=== PATIENT | male | born 1985 | race Caucasian/White ===

== ENCOUNTER 2018-05-30 00:06 | Emergency (ER) | payer SELFPAY ==
[~2018-05-30] VITALS: Ht 162.6 cm; Wt 54.4 kg
[~2018-05-30 00:06] MED LIST: METH-37 PO; TRAM-48 PO
[2018-05-30 00:32] VITALS: BP 155/98
[2018-05-30] MEDS ORDERED: CLIN300C8 PO (00:53)
[2018-05-30] MEDS ORDERED: CLINDAMYCIN HCL 150 MG CAPSULE. PO ONE (01:00)
--- NOTE | 2018-05-30 04:12 | PHYS DOC ---
Past Medical History Past Medical History: No Pertinent History Additional Past Medical Histor: DENTAL ISSUES Past Surgical History: No Surgical History Alcohol Use: None Drug Use: None Adult General Chief Complaint Chief Complaint: DENTAL PROBLEM HPI HPI Patient is a 33 year old long-standing history of widespread dental caries multiple dental erosions who presents with soft tissue gingival swelling draining abscess. Patient is currently on penicillin without improvement. Reports pearly controlled pain. No fever chills, dysphonia, dysphagia, drooling. No chest pain shortness breath. No other acute symptoms or complaints. Patient has not followed up with dentist. [] Review of Systems Review of Systems ROS as per HPI [] All other systems were reviewed and found to be within normal limits, except as documented in this note. Current Medications Current Medications Current Medications Medications (Trade) Dose Ordered Sig/Peter Start Time Stop Time Status Last Admin Dose Admin Clindamycin HCl (Cleocin) 300 mg 1X ONCE 05/30/18 01:00 05/30/18 01:01 DC 05/30/18 01:03 300 MG Allergies Allergies Allergies Coded Allergies Type Severity Reaction Last Updated Verified No Known Drug Allergies 10/21/14 No Physical Exam Physical Exam Constitutional: Well developed, well nourished, no acute distress, non-toxic appearance. [] HENT: Normocephalic, atraumatic, bilateral external ears normal, oropharynx moist, apical gingival draining abscess in upper gum line of hard palate. No dysphagia or drooling or trismus [] Neurologic: Alert and oriented X 3, normal motor function, normal sensory function, no focal deficits noted. [] Psychologic: Affect normal, judgement normal, mood normal. [] Current Patient Data Vital Signs Vital Signs Date Time Temp Pulse Resp B/P (MAP) Pulse Ox O2 Delivery O2 Flow Rate FiO2 05/30/18 00:32 98.7 77 17 155/98 (117) 97 Room Air 98.7 EKG EKG [] Radiology/Procedures Radiology/Procedures [] Course & Med Decision Making Course & Med Decision Making Pertinent Labs and Imaging studies reviewed. (See chart for details) [Patient currently on penicillin given clindamycin. Dental provider sheet provided to patient. He is instructed to given tomorrow morning to see dental/ oral surgeon for definitive care] Dragon Disclaimer Dragon Disclaimer This electronic medical record was generated, in whole or in part, using a voice recognition dictation system. Departure Departure Impression: Primary Impression: Abscess, dental Disposition: HOME, SELF-CARE Condition: STABLE Patient Instructions: Dental Abscess, Dental Caries-Brief Additional Instructions: Follow with one of the dental clinics listed on the hand out provided tomorrow. Take newly prescribed antibotic as directed. Scripts Clindamycin Hcl (CLINDAMYCIN HCL) 300 Mg Capsule 1 CAP PO TID, #30 CAP Prov: JORDAN DAVENPORT DO 05/30/18 JORDAN DAVENPORT DO May 30, 2018 04:12
== END 2018-05-30 01:07 | disposition home or self-care (01) ==
LOC: ER 00:06
DX: K04.7 Periapical abscess without sinus (principal); K02.9 Dental caries, unspecified
CPT/HCPCS: 99283

== ENCOUNTER 2020-05-27 21:29 | Emergency (ER) | payer SELFPAY ==
[~2020-05-27] VITALS: Ht 162.6 cm; Wt 54.5 kg
[~2020-05-27 21:29] MED LIST changes: +CLIN300C8 PO
[2020-05-27] MEDS ORDERED: AZIT250T PO (22:32)
--- NOTE | 2020-05-27 22:33 | PHYS DOC ---
Past Medical History Past Medical History: Other Additional Past Medical Histor: DENTAL ISSUES Past Surgical History: No Surgical History Smoking Status: Current Every Day Smoker Alcohol Use: None Drug Use: None General Adult EDM: Chief Complaint: GENERALIZED BODY ACHES HPI: HPI: Patient is a 34 year [id number] male presents with a chief complaint of fever cough with sputum production fever chills muscle aches since yesterday. Review of Systems: Review of Systems: Constitutional: Positive fever positive chills Eyes: Denies change in visual acuity. [] HENT: Denies nasal congestion or sore throat. [] Respiratory: Positive cough or shortness of breath. [] Cardiovascular: Denies chest pain or edema. [] GI: Denies abdominal pain, vomiting, bloody stools or diarrhea. [Positive nausea] : Denies dysuria. [] Musculoskeletal: Denies back pain or joint pain. [] Integument: Denies rash. [] Neurologic: Positive headache, denies focal weakness or sensory changes. [] Endocrine: Denies polyuria or polydipsia. [] Lymphatic: Denies swollen glands. [] Psychiatric: Denies depression or anxiety. [] Heart Score: Risk Factors: Risk Factors: DM, Current or recent (<one month) smoker, HTN, HLP, family h istory of CAD, obesity. Risk Scores: Score 0 - 3: 2.5% MACE over next 6 weeks - Discharge Home Score 4 - 6: 20.3% MACE over next 6 weeks - Admit for Clinical Observation Score 7 - 10: 72.7% MACE over next 6 weeks - Early Invasive Strategies Current Medications: Current Medications Medications (Trade) Dose Ordered Sig/[facility] Start Time Stop Time Status Last Admin Dose Admin Dexamethasone Sodium Phosphate (Decadron) 10 mg 1X ONCE 05/27/20 22:30 05/27/20 22:31 UNV Allergies: Allergies: Allergies Coded Allergies Type Severity Reaction Last Updated Verified No Known Drug Allergies 10/21/14 No Physical Exam: PE: Constitutional: Well developed, well nourished, no acute distress, non-toxic appearance. [] HENT: Normocephalic, atraumatic, bilateral external ears normal, oropharynx moist, no oral exudates, nose normal. [] Eyes: PERRLA, EOMI, conjunctiva normal, no discharge. [] Neck: Normal range of motion, no tenderness, supple, no stridor. [] Cardiovascular:Heart rate regular rhythm, no murmur [] Lungs & Thorax: No respiratory distress Abdomen: Bowel sounds normal, soft, no tenderness, no masses, no pulsatile masses. [] Skin: Warm, dry, no erythema, no rash. [] Back: No tenderness, no CVA tenderness. [] Extremities: No tenderness, no cyanosis, no clubbing, ROM intact, no edema. [] Neurologic: Alert and oriented X 3, normal motor function, normal sensory function, no focal deficits noted. [] Psychologic: Affect normal, judgement normal, mood normal. [] Current Patient Data: Vital Signs: Vital Signs Date Time Temp Pulse Resp B/P (MAP) Pulse Ox O2 Delivery O2 Flow Rate FiO2 05/27/20 21:44 99.3 88 18 127/79 (95) 98 Room Air 99.3 EKG: EKG: [] Radiology/Procedures: Radiology/Procedures: [] Course & Med Decision Making: Course & Med Decision Making Pertinent Labs and Imaging studies reviewed. (See chart for details) [] Patient was evaluated for chief complaint. Work-up consisted of laboratory analysis and radiologic imaging. Chest x-ray no focal infiltrate COVID test pending. Treatment included Decadron. Suspect COVID. Patient is afebrile and not hypoxic. Discharged home given COVID precaution instructions. Hilary Disclaimer: Hilary Disclaimer: This electronic medical record was generated, in whole or in part, using a voice recognition dictation system. Departure Departure Impression: Primary Impression: Viral syndrome Disposition: HOME, SELF-CARE Condition: STABLE Referrals: NO PCP (PCP) Patient Instructions: Viral Syndrome Additional Instructions: You have been tested for or diagnosed with COVID-19. It is an infection caused by a new type of coronavirus. COVID-19 will cause cold-like or mild flu symptoms in most. It can cause more severe symptoms like problems breathing in some. There is no treatment for COVID-19. The body will clear the infection over time. Self-care will help to ease discomfort. Steps to Take: Self-Care Rest as needed. Healthy habits may help you feel better. Steps include: Choose healthy foods including fruits and vegetables. Drink water throughout the day. Get plenty of sleep each night. If you smoke, try to quit. It may ease breathing. Avoid alcohol. Keep Others Healthy The virus can spread to others. Droplets are released every time you sneeze or cough. The droplets can get into the mouth, nose, or eyes of people near you and lead to infection. To lower the chances of spreading COVID-19 to others: Stay at home until your doctor has said it is safe to leave. If you tested positive this will mean staying isolated until both of the following are true: At least 7 days have passed since the start of illness. You are free of fever for at least 72 hours without the use of medicine. During this time: - Avoid public areas, events, or transportation. Do not return to work or school until your doctor has said it is safe to do so. - Call ahead if you need to go to a medical center. Let them know you may have COVID-19. It will help them guide you where to go. They may also ask you to wear a facemask when you come to the office. - If you call for emergency medical services, let them know you may have COVID- 19. While at home: - Try to avoid close contact with others. Stay about 6 feet away. - If possible, spend most of your time in a separate room from others. - Use a face mask if you will be in close contact with others such as sharing a room or vehicle. - Have someone wipe down common surfaces in the home. Use household supervisor tower every day on areas like doorknobs, counters, or sinks. - Cough or sneeze into a tissue. Throw the tissue away right after use. If a tissue is not available, cough or sneeze into your elbow. - Wash your hands often. Wash them after sneezing or coughing. Use soap and water and wash for at least 20 seconds. Alcohol based hand white work cleaner can be used if soap and water is not available. - Do not prepare food for others. Avoid sharing personal items like forks, spoons, or toothbrushes. - Avoid close contact with pets while you are sick. There is no evidence of the virus passing to pets. This is a safety step until more is known about this virus. Isolation can be frustrating. Social interaction can help. Keep in touch with friends and family through phone and tech options. You can still interact with others in your home, just keep a safe distance of about 6 feet. Follow-up: Your doctors office will check in with you to see if there are any changes in your health. You may be asked to keep track of symptoms to share with them. They will also let you know when you are clear to be in public again. Problems to Look Out For: Contact your doctor if your recovery is not going as you expect. Get emergency care if you have problems such as: - Trouble breathing - Nonstop chest pain or pressure - Changes in awareness, confusion, or problems waking - Lips or face have bluish color - Worsening of symptoms If you think you have an emergency, call for emergency medical services right away. As taken from [facility] Scripts Azithromycin (ZITHROMAX) 250 Mg Tablet 1 PKG PO UD, #6 TAB Prov: DENNY KRAMER I DO 05/27/20 Justicifation of Admission Dx: Justifications for Admission: Justification of Admission Dx: N/A DENNY KRAMER I DO May 27, 2020 22:33
--- NOTE | 2020-05-27 22:46 | RAD ---
EXAM: CHEST AP ONLY 05/27/2020 10:28 PM CLINICAL INDICATION: Cough COMPARISON: None TECHNIQUE: AP upright view of the chest FINDINGS: The heart and mediastinum are normal. Lungs are well-expanded and clear. No consolidation, pleural effusion, or pneumothorax. Pulmonary vascularity is normal. The thoracic skeleton is intact. IMPRESSION: Normal chest radiograph. Electronically signed by: Renata Santos MD (05/27/2020 10:43 PM) [id number]
[2020-05-27] MEDS ORDERED: DEXAMETHASONE SOD PHOS 20 MG/5 ML VIAL. PO ONE (23:00)
[2020-05-27 23:15] VITALS: BP 115/77
--- NOTE | 2020-05-29 13:14 | NUR ---
IP: Informed pt of negative COVID results. Pt verbalized understanding.
== END 2020-05-27 22:59 | disposition home or self-care (01) ==
LOC: ER 21:29
DX: B34.9 Viral infection, unspecified (principal); Z20.828 Contact with and (suspected) exposure to other viral communicable diseases; R50.9 Fever, unspecified; R05 Cough; R11.0 Nausea; F17.200 Nicotine dependence, unspecified, uncomplicated
CPT/HCPCS: 71045; 99284; J1100; U0003

== ENCOUNTER 2020-08-25 19:35 | Emergency (ER) | payer SELFPAY ==
[~2020-08-25] VITALS: Ht 162.6 cm; Wt 54.5 kg
[~2020-08-25 19:35] MED LIST changes: +AZIT250T PO; -CLIN300C8 PO; +CLIN300C9 PO
[2020-08-25 20:23] VITALS: BP 136/91
[2020-08-25] MEDS ORDERED: AMOXICILLIN/K CLAV 875/125MG TABLET. PO ONE (22:00)
[2020-08-25] MEDS ORDERED: HYDROcodone/APAP 5/325MG 1 TAB TABLET PO ONE (22:00)
[2020-08-25] MEDS ORDERED: KETOROLAC 60 MG/2 ML VIAL. IM ONE (22:00)
--- NOTE | 2020-08-25 23:16 | PHYS DOC ---
Past Medical History Past Medical History: Other Additional Past Medical Histor: DENTAL ISSUES Past Surgical History: No Surgical History Smoking Status: Current Every Day Smoker Alcohol Use: None Drug Use: None General Adult EDM: Chief Complaint: DENTAL PROBLEM HPI: HPI: Patient is a 35 year old male presents emergency department with right-sided lower gum swelling he states started yesterday. Patient reports all he needs is some antibiotics and he will follow-up with a dentist. Patient states she has a long history of dental problems, and has been on antibiotics in the past. Patient denies any allergies to medications. Denies any trauma to his teeth, denies any recent fever or chills, denies any loss of taste or loss of sensation to his face or tongue or mouth. Patient denies any nasal drainage, denies congestion, cough, chest pain, shortness of breath, chest palpitations. Patient denies any nausea or vomiting or abdominal pains. Denies any other health concerns or physical complaints. Patient reports being a cigarette smoker, pa rogernt denies taking any prescription medications at home. Patient denies illicit drug use denies alcohol use. Review of Systems: Review of Systems: 14 body systems of review of systems have been reviewed. See HPI for pertinent positives and negative responses, otherwise all other systems are negative, nonpertinent or noncontributory. Heart Score: Risk Factors: Risk Factors: DM, Current or recent (<one month) smoker, HTN, HLP, family his tory of CAD, obesity. Risk Scores: Score 0 - 3: 2.5% MACE over next 6 weeks - Discharge Home Score 4 - 6: 20.3% MACE over next 6 weeks - Admit for Clinical Observation Score 7 - 10: 72.7% MACE over next 6 weeks - Early Invasive Strategies Current Medications: Current Medications Medications (Trade) Dose Ordered Sig/Peter Start Time Stop Time Status Last Admin Dose Admin Acetaminophen/ Hydrocodone Bitart (Lortab 5/325) 2 tab 1X ONCE 08/25/20 22:00 08/25/20 22:01 DC 08/25/20 22:24 2 TAB Amoxicillin/ Clavulanate Potassium (Augmentin 875/ 125mg) 1 tab 1X ONCE 08/25/20 22:00 08/25/20 22:01 DC 08/25/20 22:27 1 TAB Ketorolac Tromethamine (Toradol Im) 60 mg 1X ONCE 08/25/20 22:00 08/25/20 22:01 DC 08/25/20 22:23 60 MG Allergies: Allergies: Allergies Coded Allergies Type Severity Reaction Last Updated Verified No Known Drug Allergies 10/21/14 No Physical Exam: PE: Constitutional: Well developed, well nourished, no acute distress, non-toxic appearance. HENT: Normocephalic, atraumatic, bilateral external ears normal, oropharynx moist, no oral exudates, nose normal. Swelling to the right lower gums area, marked dental caries with many broken teeth, several teeth missing, no gum cellulitis, no facial cellulitis appreciated. No purulent drainage. Oropharynx is pink and moist, no narrowing of airway appreciated. Patient speaks in full sentences no muffled voice tones appreciated. Eyes: PERRLA, EOMI, conjunctiva normal, no discharge. Neck: Normal range of motion, no tenderness, supple, no stridor. Cardiovascular:Heart rate regular rhythm, no murmur Lungs & Thorax: Bilateral breath sounds clear to auscultation Abdomen: Bowel sounds normal, soft, no tenderness, no masses, no pulsatile masses. Skin: Warm, dry, no erythema, no rash. Back: No tenderness, no CVA tenderness. Extremities: No tenderness, no cyanosis, no clubbing, ROM intact, no edema. Neurologic: Alert and oriented X 3, normal motor function, normal sensory function, no focal deficits noted. Psychologic: Affect normal, judgement normal, mood normal. Current Patient Data: Vital Signs: Vital Signs Date Time Temp Pulse Resp B/P (MAP) Pulse Ox O2 Delivery O2 Flow Rate FiO2 08/25/20 22:24 18 98 Room Air 08/25/20 20:23 98.3 62 136/91 (106) 98.3 EKG: EKG: [] Radiology/Procedures: Radiology/Procedures: [] Course & Med Decision Making: Course & Med Decision Making Pertinent Labs and Imaging studies reviewed. (See chart for details) 35-year-old male, vital signs reviewed, states he has had a long history of dental problems, stating his lower right-sided gum started swelling yesterday, examination consistent with dental abscess, patient had marked dental caries, patient started on antibiotics in the ER given pain medicines, patient gave verbal understanding to follow-up with dentist soon, discharge home instructions, antibiotic use, upon reexamination of patient after pain medications and antibiotics given, patient states that this pain decreased from a 10/10 pain scale in the 1-10 pain scale down to a 4/10 pain. Patient discharged home without incident. Impression: #1 dental abscess #2 dental caries Hilary Disclaimer: Hilary Disclaimer: This electronic medical record was generated, in whole or in part, using a voice recognition dictation system. Departure Departure Impression: Primary Impression: Abscess, dental Additional Impression: Pain due to dental caries Disposition: 01 DC HOME SELF CARE/HOMELESS Condition: GOOD Referrals: NO PCP (PCP) Patient Instructions: Dental Abscess, Dental Caries Additional Instructions: Please take prescriptions as directed, follow-up with a dentist soon, return to emergency department for worsening symptoms or concerns. EMERGENCY DEPARTMENT GENERAL DISCHARGE INSTRUCTIONS Thank you for coming to [facility] Emergency Department (ED) today and trusting us with you care. We trust that you had a positive experience in our Emergency Department. If you wish to speak to the department management, you may call the Director at [phone]. YOUR FOLLOW UP INSTRUCTIONS ARE FOLLOWS: 1. Do you have a private Doctor? If you do not have a private doctor, please ask for a resource list of physicians or clinics that may be able to assist you with follow up care. 2. The Emergency Physicain has interpreted your x-rays. The X-Ray specialist will also review them. If there is a change in the findings, you will be notified in 48 hours when at all possible. 3. A lab test or culture has been done, your results will be reviewed and you will be notified if you need a change in treatment. ADDITIONAL INSTRUCTIONS AND INFORMATION: 1. Your care today has been supervised by a physician who is specially trained in emergency care. Many problems require more than one evaluation for a complete diagnosis and treatment. We recommend that you schedule your follow up appointment as recommended to ensure complete treatment of you illness or injury. If you are unable to obtain follow up care and continue to have a problem, or if your condition worsens, we recommend that you return to the ED. 2. We are not able to safely determine your condition over the phone nor are we able to give sound medical advice over the phone. For these safety reasons, if you call for medical advice we will ask you to come to the ED for further evaluation. 3. If you have any questions regarding these discharge instructions please call the ED at [phone]. SAFETY INFORMATION: In the interest of safety, wellness, and injury prevention; we encourage you to wear your sealbelt, if you smoke; quite smoking, and we encourage family to use a protective helmet for bicycling and other sporting events that present an increased risk for head injury. IF YOUR SYMPTOMS WORSEN OR NEW SYMPTOMS DEVELOP, OR YOU HAVE CONCERNS ABOUT YOUR CONDITION; OR IF YOUR CONDITION WORSENS WHILE YOU ARE WAITING FOR YOUR FOLLOW UP APPOINTM ENT; EITHER CONTACT YOUR PRIMARY CARE DOCTOR, THE PHYSICIAN WHOSE NAME AND NUMBER YOU WERE GIVEN, OR RETURN TO THE ED IMMEDIATELY. Scripts Chlorhexidine Gluconate (PERIDEX) 15 Ml Mouthwash 15-30 ML PO TID for DENTAL CARIES for 8 Days, #473 ML 0 Refills Prov: YESENIA TEJEDA APRN 08/25/20 Ibuprofen (IBUPROFEN) 600 Mg Tablet 600 MG PO PRN Q6HRS PRN for INFLAMMATION, #20 TAB 0 Refills Prov: YESENIA TEJEDA APRN 08/25/20 Amoxicillin/Potassium Clav (AUGMENTIN 875-125 TABLET) 1 Each Tablet 1 TAB PO BID for DENTAL ABSCESS for 14 Days, #28 TAB 0 Refills Prov: YESENIA TEJEDA APRN 08/25/20 YESENIA TEJEDA APRN Aug 25, 2020 23:16
[2020-08-25] MEDS ORDERED: IBUP-1007 PO (23:25)
[2020-08-25] MEDS ORDERED: AMOX1TAB61 PO (23:25)
[2020-08-25] MEDS ORDERED: CHLO15MO2 PO (23:25)
== END 2020-08-25 23:25 | disposition home or self-care (01) ==
LOC: ER 19:35
DX: K02.9 Dental caries, unspecified (principal); K08.89 Other specified disorders of teeth and supporting structures; R60.0 Localized edema; F17.200 Nicotine dependence, unspecified, uncomplicated
CPT/HCPCS: 96372; 99283; J1885